=== PATIENT | male | born 1960 | race African-American/Black ===

== ENCOUNTER 2017-06-19 15:13 | Emergency (ER) | payer SELFPAY ==
[~2017-06-19] VITALS: Ht 172.7 cm; Wt 75.0 kg
[~2017-06-19 15:13] MED LIST: ALBU6.7H INH; COMPLERA PO; MONT10TA21 PO
[2017-06-19] MEDS ORDERED: ALBUTEROL (0.083%) 2.5MG/3ML NEB HHN STA (17:14)
[2017-06-19] MEDS ORDERED: METHYLPREDNISOLONE SOD SUCC 125 MG/2 ML VIAL IV STA (17:14)
[2017-06-19] MEDS ORDERED: IPRATROPIUM BROMIDE (0.02%) 0.5MG/2.5ML NEB HHN STA (17:14)
[2017-06-19 18:57] VITALS: BP 129/87
== END 2017-06-19 19:06 | disposition home or self-care (01) ==
LOC: ER 15:25
DX: J45.901 Unspecified asthma with (acute) exacerbation (principal)
CPT/HCPCS: 71045; 87804; 96374; 99285; J2930; J7611; Z7610